=== PATIENT | female | born 1985 | race Caucasian/White ===

== ENCOUNTER 2023-08-14 03:47 | Day surgery (SDC) | payer OTHER, SELFPAY ==
[2023-07-31 10:59] VITALS: BMI 20.7
--- NOTE | 2023-08-12 12:21 | SUR.PREOP ---
Patient called regarding upcoming procedure. Reviewed preop instructions, appointment times, and procedure prep.
[2023-08-14 11:20] VITALS: BP 131/82; PULSE 89; RESP 16; TEMP 36.7; O2SAT 100
[2023-08-14] MEDS: LACTATED RINGERS 1,000 ML 150 ML IV CONT (11:30)
--- NOTE | 2023-08-14 11:53 | WPDANESEPPF ---
Anes - Initial Pre Proc Eval Procedure: Operation Date: 08/14/23 12:30 Proposed Procedures p Esophagogastroduodenoscopy & Colonoscopy - Rito Marin MD Date/Time: 08/14/23 11:53 Surgeon: Rito Marin MD Pre Op Diagnosis: Foreign body sensation,throat,Left Lower quad pain Patient Data Age: 37 Gender: F Height: 1.6 m Weight: 51.6 kg Last Vital Signs Temp 36.7 C 08/14/23 11:20 Pulse 89 08/14/23 11:20 Resp 16 08/14/23 11:20 BP 131/82 08/14/23 11:20 Pulse Ox 100 08/14/23 11:20 O2 Del Method Room Air 08/14/23 11:20 Allergies Allergy/AdvReac Type Severity Reaction Status Date / Time No Known Allergies Allergy Verified 08/14/23 11:19 Home Medications Medication Instructions Recorded Confirmed Type levothyroxine 25 mcg capsule 25 mcg PO DAILY 07/01/23 08/14/23 History Patient hx anesthesia problems: none Family hx anesthesia problems: none Results Review: All pre-operative results and documents have been reviewed as part of the pre-operative evaluation. [facility] Past Medical History Medical History Abnormal CT scan BMI 20.0-20.9, adult Change in bowel habits Family history of ulcerative colitis Gas bloat syndrome Globus sensation LLQ pain Family History Family History Father Hypertension Gout Hyperlipidemia Social History Social History Smoking status: Never smoker Second hand tobacco smoke exposure: No Alcohol intake: current Drinks per week: 2 Substance use: never Substance use type: does not use Lack of Transportation: No Lack of Food: Never True Current Housing: I Have Housing Concerned About Future Housing: No Difficulty Paying Gas/Electric Bills: No Difficulty Paying for Meds: No Currently Unemployed: No Education: Bachelor's Degree Difficulty w/ Childcare or Family Care: No Living arrangements: with family Occupation/Education: occupation 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 Gender identity (if verbalized by the patient): Female Spiritual care concerns: No Anes - Eval Final PreProcedure Day of Procedure 08/14/23 11:53 Patient weight: normal Heart: regular rate and rhythm Lungs: clear to auscultation Airway: Mallampati scale class II Neurological: alert and oriented Last oral intake: >/= 8 hours ASA classification: II Emergent: no Anesthetic plan: proceed Anesthesia type and monitoring: general GIVS and standard monitoring Results Review: All pre-operative results and documents have been reviewed as part of the pre-operative evaluation. Informed Consent: The patient's anesthetic plan and its attendant risks and benefits were discussed with the patient/family/POA. Questions were solicited and answers provided to the satisfaction of the patient/family/POA.
--- NOTE | 2023-08-14 13:03 | PM.HPGS ---
History of Present Illness History of Present Illness Consent: Risks, benefits, and alternatives have been discussed and questions answered. Patient agrees to proceed with procedure. Chief complaint: Foreign body sensation,throat,Left Lower quad pain Narrative: Suzette Santos is a 37 year old female here for egd and colonoscopy. Earlier this year with abdominal pain and bloating that improved after decided to stop eating gluten, CT scan showed 1). nonspecific heterogeneous appearance of transverse colon wall, likely underdistention artifact but early inflammatory infectious colitis can not be ruled out. OVerall better, she is eating gluten again just for the EGD. Never had scopes Review of Systems Constitutional: Constitutional: Denies headache(s) and Denies weakness Eyes: Eyes: Denies blurry vision ENT: Reports Normal hearing present, Denies headache(s) and Denies neck pain Cardiovascular: Cardiovascular: Denies chest pain and Denies dyspnea Respiratory: Respiratory: Denies dyspnea Gastrointestinal: Gastrointestinal: Reports no additional gastrointestinal complaints Genitourinary: Genitourinary: Denies dysuria Musculoskeletal: Musculoskeletal: Denies neck pain Integumentary/Breasts: Skin/Breast: Denies dry skin Neurologic: Reports Normal hearing present, Denies headache(s) and Denies weakness Psychiatric: Psychiatric: Denies anxiety Endocrine: Endocrine: Denies change in body appearance Hematologic/Lymphatic: Hematologic/Lymphatic: Denies easy bleeding Allergic/Immunologic: Allergic/Immunologic: Denies urticaria PMFSH Past Medical History Medical History Abnormal CT scan BMI 20.0-20.9, adult Change in bowel habits Family history of ulcerative colitis Gas bloat syndrome Globus sensation LLQ pain Family History Family History Father Hypertension Gout Hyperlipidemia Social History Social History Smoking status: Never smoker Second hand tobacco smoke exposure: No Alcohol intake: current Drinks per week: 2 Substance use: never Substance use type: does not use Lack of Transportation: No Lack of Food: Never True Current Housing: I Have Housing Concerned About Future Housing: No Difficulty Paying Gas/Electric Bills: No Difficulty Paying for Meds: No Currently Unemployed: No Education: Bachelor's Degree Difficulty w/ Childcare or Family Care: No Living arrangements: with family Occupation/Education: occupation 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 Gender identity (if verbalized by the patient): Female Spiritual care concerns: No Meds Home Medications and Allergies Home Medications Medication Instructions Recorded Confirmed Type levothyroxine 25 mcg capsule 25 mcg PO DAILY 07/01/23 08/14/23 History Allergies Allergy/AdvReac Type Severity Reaction Status Date / Time No Known Allergies Allergy Verified 08/14/23 11:19 Vital Signs Vital Signs - 24 hr 08/14/23 11:20 Temperature 98.0 F Pulse Rate 89 Respiratory Rate 16 Blood Pressure 131/82 Pulse Oximetry 100 Oxygen Delivery Room Air Exam Const: General: comfortable and no acute distress HENMT: Face/Nose/Sinus: Normal nares present Eyes: General: appearance normal, both eyes and all related structures Neck: Neck: no JVD Resp: Auscultation: clear to auscultation bilaterally Cardio: Rate: regular rate Rhythm: regular rhythm GI: Inspection: non-distended GI Palp: Yes Soft to palpation Skin: General skin exam: normal color Neuro: General: gait normal Speech: normal speech Extrem: General: normal to inspection Psych: Mental Status: mental status grossly normal Assessment and Plan Assessment and plan (1) Abnormal CT scan: Code(s): R93.89 - Abnormal findings on
--- NOTE | 2023-08-14 13:23 | SUR.OPER ---
egd ended at 1313 and colonoscopy begun 1320.
[2023-08-14 13:33] VITALS: BP 110/70; PULSE 94; RESP 12; O2SAT 100
[2023-08-14 13:43] VITALS: BP 109/71; PULSE 75; RESP 25; O2SAT 100
[2023-08-14 13:53] VITALS: BP 110/74; PULSE 73; RESP 18; O2SAT 100
== END 2023-08-14 13:55 | disposition home or self-care (01) ==
PROVIDERS: PCP Nurse Practitioner Family; Visit Provider Internal Medicine Gastroenterology
PROC: 0DJ08ZZ Inspection of Upper Intestinal Tract, Via Natural or Artificial Opening Endoscopic (ICD-10-PCS; CPT 43235; principal; 2023-08-14 12:30)
DX: K29.50 Unspecified chronic gastritis without bleeding (principal); K64.8 Other hemorrhoids
CPT/HCPCS: 43239; 45378; 88305; J2001; J2405; J2704; J3010; J7120